=== PATIENT | female | born 1980 | race African-American/Black ===

== ENCOUNTER 2016-08-30 15:37 | Emergency (ER) | payer BC ==
[2016-08-30] MEDS ORDERED: METHYLDOPA 250 MG TAB PO ONE (18:05)
[2016-08-30] MEDS ORDERED: LABETALOL 100 MG/20 ML VIAL ONE (18:31)
== END 2016-08-30 20:28 | disposition home or self-care (01) ==
LOC: ER 15:37
DX: O10.911 Unspecified pre-existing hypertension complicating pregnancy, first trimester (principal); O23.41 Unspecified infection of urinary tract in pregnancy, first trimester
CPT/HCPCS: 36415; 80053; 81001; 84702; 84703; 85025; 86901; 87088; 93005; 96374